=== PATIENT | female | born 1950 | race Caucasian/White ===

== ENCOUNTER → 2017-06-30 | Day surgery (SDC) | payer OTHER ==
[~2017-06-30] VITALS: Ht 180.3 cm; Wt 90.7 kg
[~2017-06-30] MED LIST: HUMALOG100 UNIT/2 SC; LEXAPRO20 M1 PO; MULTIVITAMINS1 EAC9 PO; SUPER B-50 COM1 EACH PO; TURMERIC500 M2 PO; ZOCOR40 M1 PO
--- NOTE | 2017-06-30 10:49 | Operative Report ---
Operative/Inv Procedure Report Surgery Date: 06/30/17 Name of Procedure: D&C hysteroscopy Pre-Operative Diagnosis: Menopausal bleeding Post-Operative Diagnosis: Same Estimated Blood Loss: scant Surgeon/Biological Scientist: Sheree Gilbert MD Anesthesia: moderate sedation Operative/Procedure Note Note: Patient was taken to the operating room placed in dorsal supine position. After adequate anesthesia, patient was prepped and draped for surgery. Examination under anesthesia was performed. CO2 tenaculum was placed on the anterior lip of the cervix gentle downward traction was used. The cervix was dilated 29 Hegar to left insertion of the hysteroscope. Under direct visualization to hysteroscopy was performed using gas hysteroscope was removed and endocervical curettage was performed. And endometrial curettage was performed. All instruments removed from the vagina. The counts were correct the patient was awakened from anesthesia. And transported to recovery room awake and alert. Findings: No adnexal masses normal size uterus uterine polyp
== END ==
LOC: STS 01:40
DX: N95.0 Postmenopausal bleeding (principal); E11.9 Type 2 diabetes mellitus without complications; Z79.4 Long term (current) use of insulin; M25.50 Pain in unspecified joint
CPT/HCPCS: 88305; J2250